=== PATIENT | female | born 1995 | race Caucasian/White ===

== ENCOUNTER → 2019-10-14 | Outpatient (CLI) | payer BC ==
--- NOTE | 2019-10-14 13:46 | RAD ---
Examination: CT of the abdomen pelvis without contrast HISTORY: History of generalized abdominal pain COMPARISON: None available Technique: Axial CT images of the abdomen pelvis were performed without contrast. Coronal and sagittal reformats are performed Exposure: One or more of the following individualized dose reduction techniques were utilized for this examination: 1. Automated exposure control 2. Adjustment of the mA and/or kV according to patient size 3. Use of iterative reconstruction technique FINDINGS: The bibasilar lungs are clear. No evidence of free air identified in the abdomen. The evaluation of the solid organs is limited due to lack of IV contrast. The evaluation of bowel is limited due to lack of oral contrast. The visualized noncontrasted liver, spleen, adrenals grossly appears unremarkable. Gallbladder is mildly distended. The stomach is mildly distended. The visualized pancreas grossly appears unremarkable. Small bowel is nondilated. Feces and gas noted in the colon. The appendix is normal. No evidence of intrahepatic system calculi or hydronephrosis No evidence of lytic bony destructive lesion. IMPRESSION: 1. No acute intra-abdominal findings Electronically signed by: Jason Ann MD (10/14/2019 1:43 PM) [id number]
== END | disposition home or self-care (01) ==
LOC: CT 12:55
PROVIDERS: ATTEND Family Medicine
DX: K82.8 Other specified diseases of gallbladder (principal)
CPT/HCPCS: 74176

== ENCOUNTER → 2019-11-03 | Outpatient (CLI) | payer BC ==
--- NOTE | 2019-11-03 14:50 | RAD ---
UPPER GI W/SBFT History: Nausea and vomiting Comparison: None. Findings: Upper GI examination was performed. Esophageal caliber is within normal limits. No significant esophageal stricture was identified. There was transient very small sliding hiatal hernia. There was delay of gastric emptying with poor contrast distention of the duodenum during the fluoroscopic portion of exam. However duodenum is better opacified with contrast on the small bowel portion of exam, also probable degree of duodenal wall thickening. Proximal small bowel is slightly distended, distally not dilated. At 3 hours, there was contrast throughout the colon, terminal ileum poorly discerned in the area of contrast opacified bowel. Fluoroscopy time: 1.2 minutes, 55 images Impression: 1. There was relative delayed gastric emptying with poor contrast distention of the duodenum during the fluoroscopy portion of exam, likely a degree of duodenal wall thickening as could be seen with duodenitis. There is mild distention of the proximal small bowel wall caliber. Electronically signed by: Darius Selby MD (11/03/2019 2:47 PM) [id number]
== END | disposition home or self-care (01) ==
LOC: DXRAD 08:46
PROVIDERS: ATTEND Internal Medicine Gastroenterology
DX: K30 Functional dyspepsia (principal); K63.89 Other specified diseases of intestine; R11.2 Nausea with vomiting, unspecified
CPT/HCPCS: 74240; 74245; 74248

== ENCOUNTER → 2020-09-27 | Outpatient (CLI) | payer BC ==
--- NOTE | 2020-09-27 17:07 | RAD ---
Exam: CT of abdomen and pelvis without contrast INDICATION: Epigastric pain for 2 months, hiatal hernia, cholecystectomy TECHNIQUE: Sequential axial images through the abdomen and pelvis obtained without IV contrast. Sagit fernando and coronal reformatted images were reconstructed from the axial data and reviewed. Exposure: One or more of the following in the visualized dose reduction techniques were utilized for this examination: 1. Automated exposure control 2. Adjustment of the MA and/or KV according to patient size 3. Use of iterative of reconstructive technique Comparisons: 10/14/2019 FINDINGS: Heart size is normal. No pericardial effusion. Visualized lung bases are clear. No pleural effusion. Evaluation of solid organs limited secondary to noncontrast technique. Diffuse hepatic steatosis. Spleen, pancreas and adrenals are unremarkable. Gallbladder surgically abs ent. No perinephric inflammation or hydronephrosis. No renal or ureteral calculi are identified. Bladder is decompressed not well evaluated. IUD noted within the uterus. No abnormal adnexal mass. Large and small bowel are unremarkable. Appendix is normal. No free intra-abdominal air or fluid. No obstruction. Abdominal aorta has a normal course and caliber. No enlarged intra-abdominal lymph nodes are identified. IMPRESSION: No acute process identified within the abdomen or pelvis. Electronically signed by: Abelardo Do MD (09/27/2020 5:04 PM) [facility]
== END ==
LOC: CT 16:26
PROVIDERS: ATTEND Nurse Practitioner Family
DX: K76.0 Fatty (change of) liver, not elsewhere classified (principal)
CPT/HCPCS: 74176

== ENCOUNTER → 2020-10-17 | Outpatient (CLI) | payer BC ==
--- NOTE | 2020-10-17 12:32 | RAD ---
EXAM: DG SMALL BOWEL FOLLOW THROUGH 10/17/2020 8:10 AM CLINICAL INDICATION: Nausea vomiting and diarrhea COMPARISON: CT abdomen pelvis 09/27/2020 TECHNIQUE: A cell stripper final image was acquired in the patient drank barium. Subsequent overhead radiographs o btained at 30 minute intervals. FINDINGS: The stomach is normal in morphology. The small bowel is normal in morphology. There is no dilation of small bowel or evidence of obstruction. The appendix is normal in appearance. Contrast re ached the colon within 110 minutes. IMPRESSION: Normal small bowel follow-through. Electronically signed by: Barbara Hinojosa MD (10/17/2020 12:30 PM) [id number]
== END ==
LOC: RAD 08:04
PROVIDERS: ATTEND Internal Medicine Gastroenterology
DX: R11.2 Nausea with vomiting, unspecified (principal); R19.7 Diarrhea, unspecified
CPT/HCPCS: 74250

== ENCOUNTER → 2020-10-20 | Outpatient (CLI) | payer BC ==
--- NOTE | 2020-10-20 19:03 | RAD ---
Right knee x-rays 3 views HISTORY: Fall, right knee pain. FINDINGS: Small bony spur of the lower patella. Mild bony spurring of the lateral tibiofemoral compar tment. No fracture. No dislocation. Soft tissues are unremarkable. IMPRESSION: No acute osseous injury. Electronically signed by: Mike Tovar MD (10/20/2020 7:01 PM) [facility]
== END ==
LOC: RAD 18:15
PROVIDERS: ATTEND Nurse Practitioner Family
DX: M77.8 Other enthesopathies, not elsewhere classified (principal); M25.561 Pain in right knee
CPT/HCPCS: 73562

== ENCOUNTER → 2020-10-20 | Outpatient (CLI) | payer BC ==
--- NOTE | 2020-10-20 13:47 | RAD ---
EXAM: NUCLEAR GASTRIC EMPTYING SCAN. HISTORY: Nausea/vomiting. COMPARISON: None. TECHNIQUE: Serial static images were obtained over the stomach following oral administration of 2 mCi of 99m-Tc sulfur colloid in a solid meal. FINDINGS: The stomach appears normal in contour. There is clearance of activity into the small bowel. The remaining fraction of gastric activity is as follows. 1 hour 40% (normal range 34.8-91%) 2 hour 20% (normal range 2.7-60%) 3 hour 11% (normal range 0.5-28%) 4 hour 3% (normal range 0-10%) IMPRESSION: 1. Normal gastric emptying. Electronically signed by: Adali Damon MD (10/20/2020 1:45 PM) [id number]
== END ==
LOC: NM 08:49
PROVIDERS: ATTEND Internal Medicine Gastroenterology
DX: R11.2 Nausea with vomiting, unspecified (principal); R19.7 Diarrhea, unspecified
CPT/HCPCS: 78264; A9541

== ENCOUNTER → 2020-12-05 | Outpatient (CLI) | payer BC ==
--- NOTE | 2020-12-05 09:56 | RAD ---
EXAM: Chest, 2 views. HISTORY: Cough and wheezing. COMPARISON: None. FINDINGS: 2 views of the chest are obtained. There is no infiltrate, pleural effusion or pneumothorax . The heart is normal in size. IMPRESSION: No acute pulmonary finding. Electronically signed by: Liset Giron MD (12/05/2020 9:53 AM) [id number]
== END ==
LOC: RAD 09:36
PROVIDERS: ATTEND Nurse Practitioner Family
DX: R06.2 Wheezing (principal); R05 Cough
CPT/HCPCS: 71046

== ENCOUNTER 2021-01-26 10:02 | Emergency (ER) | payer BC ==
[~2021-01-26] VITALS: Ht 162.6 cm; Wt 113.6 kg
[2021-01-26 10:07] VITALS: BP 131/64
[2021-01-26] MEDS ORDERED: SUMAtriptan SUCC 6 MG/0.5 ML VIAL SQ ONE (10:30)
--- NOTE | 2021-01-26 10:39 | PHYS DOC ---
Past History Past Surgical History: Cholecystectomy (FARZANEH LISA) Alcohol Use: None (FARZANEH LISA) General Adult EDM: Chief Complaint: HEADACHE HPI: HPI: Patient is a 26 year old female with history of migraines who presents with headache after a cabinet fell on her. Patient rates her current pain 10/10 in the superior and anterior portion of her head. Patient reports that Saturday night, one of her kitchen cabinets fell off of the wall. It fell in such a way that the inside top of the cabinet fell directly on the top of her head. Patient reports she was disoriented afterward, with dizziness and unsteadiness. She denies loss of consciousness and vomiting. She has no lacerations or abrasions. She works in the urgent care upstairs, and was diagnosed with a concussion yesterday. Today she reports new onset nausea, bilateral eye pain, and throbbing headache. Urgent care staff suggested she come down to the emergency department. While patient does have a history of migraines, she states that this feels different. The pain starts on the top of her head and radiates down towards mid face. She denies any new onset neck pain or any other trauma. She denies vision changes or visual field deficits, vomiting. Patient has no other complaints at this time. (FARZANEH LISA) Review of Systems: Review of Systems: Constitutional: Denies fever or chills Eyes: See HPI Respiratory: Denies cough or shortness of breath Cardiovascular: Denies chest pain or edema GI: See HPI Musculoskeletal: Denies back pain or joint pain Integument: See HPI Neurologic: See HPI (FARZANEH LISA) Current Medications: Current Meds: Current Medications Medications (Trade) Dose Ordered Sig/Violeta Start Time Stop Time Status Last Admin Dose Admin Sumatriptan Succinate (Imitrex) 6 mg 1X ONCE 01/26/21 10:30 01/26/21 10:31 UNV (FARZANEH LISA) Physical Exam: PE: Constitutional: Well developed, well nourished, no acute distress, non-toxic appearance. HENT: Normocephalic, atraumatic, bilateral external ears normal, oropharynx moist, no oral exudates, nose normal. Eyes: PERRLA, EOMI, conjunctiva normal, no discharge. Neck: Normal range of motion, no tenderness, no stridor. Cardiovascular: Heart rate regular rhythm, no murmur. Lungs & Thorax: Bilateral breath sounds clear to auscultation. Back: No step-offs, no tenderness. Extremities: No tenderness, no cyanosis, no clubbing, ROM intact, no edema. Neurologic: Alert and oriented x3, normal motor function, normal sensory func tion, no focal deficits noted. (FARZANEH LISA) Current Patient Data: Vital Signs: Vital Signs Date Time Temp Pulse Resp B/P (MAP) Pulse Ox O2 Delivery O2 Flow Rate FiO2 01/26/21 10:07 98.3 72 16 131/64 (86) 98 Room Air (FARZANEH LISA) Radiology/Procedures: Radiology/Procedures: PROCEDURE: CT HEAD AND CERVICAL SPINE WO CT brain without contrast, CT C-spine without contrast. HISTORY: Head trauma or graft CT brain CT scan the brain was done without contrast. A skull fracture is not identified. Sinuses are clear. There is no mass effect or shift of the midline. There is no intracranial hemorrhage or subdural hematoma. Ventricles are normal in size. IMPRESSION: 1. No intracranial hemorrhage or acute finding noted. End impression CT cervical spine Axial CT images were obtained to the cervical spine. Sagittal and coronal reconstructed images were reviewed. An acute C-spine fracture is not identified. C-spine is in normal alignment. Disc spaces are normal in height. There is mild scoliosis convex to the left. IMPRESSION: 1. No acute fractures noted in the cervical spine. PQRS Compliance Statement: One or more of the following individualized dose reduction techniques were utilized for this examination: 1. Automated exposure control 2. Adjustment of the mA and/or kV according to patient size 3. Use of iterative reconstruction technique Electronically signed by: Ayaan Fajardo MD (01/26/2021 11:23 AM) [id number] (FARZANEH LISA) Heart Score: C/O Chest Pain: No (FARZANEH LISA) Course & Med Decision Making: Course & Med Decision Making Pertinent Labs and Imaging studies reviewed. (See chart for details) Patient injury was 2 days ago, but was disoriented directly after injury. Ad ditionally, she has persistent and worsening headache. CT head and neck plain ordered to evaluate for acute intracranial or cervical abnormality. On reevaluation, patient's pain is better after Imitrex. No acute injury seen on CT imaging. Patient will be discharged home with instruction to continue taking Imitrex as needed for her headache. Patient understands and is agreeable to discharge plan. (FARZANEH LISA) Course & Med Decision Making Did not see or evaluate patient. Did not discuss patient with PA. Agree with PAs work-up and disposition per note. (SUAD LUTHER MD) Dragon Disclaimer: Dragon Disclaimer: This electronic medical record was generated, in whole or in part, using a voice recognition dictation system. (FARZANEH LISA) Departure Departure: Impression: Primary Impression: Post-concussion headache Disposition: HOME / SELF CARE / HOMELESS Condition: STABLE Referrals: JEREMIAH CROWELL DO (PCP) Patient Instructions: Migraine Headache, [id number] Additional Instructions: Imaging done today does not show any acute injury to your brain or cervical spine. Please return to the emergency department if you develop new symptoms or your pain becomes uncontrollable at home. Scripts Sumatriptan Succinate (SUMATRIPTAN SUCCINATE) 100 Mg Tablet 1 TAB PO PRN DAILY PRN for MIGRAINE HEADACHE, #10 TAB 3 Refills Prov: FARZANEH LISA 01/26/21 FARZANEH LISA Jan 26, 2021 10:39 SUAD LUTHER MD Jan 26, 2021 13:52
--- NOTE | 2021-01-26 11:25 | RAD ---
CT brain without contrast, CT C-spine without contrast. HISTORY: Head trauma or graft CT brain CT scan the brain was done without contrast. A skull fracture is not identified. Sinuses are clear. T here is no mass effect or shift of the midline. There is no intracranial hemorrhage or subdural hemat chari. Ventricles are normal in size. IMPRESSION: 1. No intracranial hemorrhage or acute finding noted. End impression CT cervical spine Axial CT images were obtained to the cervical spine. Sagittal and coronal reconstructed images were r eviewed. An acute C-spine fracture is not identified. C-spine is in normal alignment. Disc spaces are normal in height. There is mild scoliosis convex to the left. IMPRESSION: 1. No acute fractures noted in the cervical spine. PQRS Compliance Statement: One or more of the following individualized dose reduction techniques were utilized for this examinat ion: 1. Automated exposure control 2. Adjustment of the mA and/or kV according to patient size 3. Use of iterative reconstruction technique Electronically signed by: Ayaan Fajardo MD (01/26/2021 11:23 AM) [id number]
[2021-01-26] MEDS ORDERED: SUMA100T4 PO (11:48)
== END 2021-01-26 12:09 | disposition home or self-care (01) ==
LOC: ER 10:31
DX: G43.909 Migraine, unspecified, not intractable, without status migrainosus (principal)
CPT/HCPCS: 70450; 72125; 96372; 99284; J3030